=== PATIENT | male | born 1960 | race Caucasian/White ===

== ENCOUNTER 2021-08-22 11:47 | Emergency (ER) | payer BC, SELFPAY ==
--- NOTE | ~2021-08-22 | XR_ITS ---
EXAMINATION: XR chest 1V portable DATE: 08/22/2021 13:36 INDICATION: Cough. COVID-19 exposure. TECHNIQUE: A single frontal view of the chest was obtained. COMPARISON: Chest single view 07/11/2017 FINDINGS: The patient is rotated to his right. There are mild airspace opacities in left lower lung z one. No pleural effusion or pneumothorax. The heart size is normal. IMPRESSION: 1. Mild airspace opacities in left lower lung zone, consistent with atelectasis versus pneumonia. Reviewed, dictated and finalized at location A. LINE DISPATCH OPERATOR
[2021-08-22 12:06] VITALS: BP 148/92; PULSE 80; RESP 16; TEMP 36.2; O2SAT 99
[2021-08-22 13:21] VITALS: BP 131/86; PULSE 73; RESP 18; O2SAT 100
[2021-08-22 13:24] VITALS: O2SAT 100
--- NOTE | 2021-08-22 14:14 | ED.GENADULT ---
HPI - General Adult General Chief complaint: Upper Respiratory Infection Stated complaint: chest cold, covid exposure Time Seen by Provider: 08/22/21 13:23 Source: patient Mode of arrival: ambulatory Limitations: no limitations History of Present Illness HPI narrative: Patient is 61-year-old male presented with chief complaint of cough over the past few days. Patient reports that his sister and multiple other family members that he has been around have been tested positive for Covid over the last few days. Patient denies shortness of breath, chest pain or fevers. Patient reports that his cough has improved on today. Related Data Allergies Allergy/AdvReac Type Severity Reaction Status Date / Time morphine AdvReac Nausea and Verified 08/22/21 13:28 Vomiting Review of Systems Review of Systems: CONSTITUTIONAL: Denies fever, chills, or sweats. EYES: Denies visual changes, redness, or discharge. ENT: Denies rhinorrhea, congestion, sore throat, or otalgia. CARDIOVASCULAR: Denies chest pain, palpitations, or edema. RESPIRATORY: Reports cough denies dyspnea. GASTROINTESTINAL: Denies abdominal pain, nausea, vomiting, or diarrhea. GENITOURINARY: Denies dysuria or hematuria. SKIN: Denies rash or itching. MUSCULOSKELETAL: Denies back pain, joint pain, or myalgia. NEUROLOGIC: Denies headache, numbness, dizziness, or weakness. PSYCHIATRIC: Denies anxiety or depression. Exam Narrative: GENERAL: Well-appearing, well-nourished, and in no acute distress. HEAD: Normocephalic, atraumatic. EYES: PERRLA and EOMI. CHEST: Clear to auscultation. No respiratory distress. No wheezes rales or rhonchi. No tachypnea. HEART: Regular rate and rhythm. No murmur heard. Normal peripheral pulses. EXTREMITIES: Normal range of motion. No edema. SKIN: Warm, dry, no rash. NEURO: No focal deficits. Alert and oriented x3. PSYCH: Normal mood and affect. Course Vital Signs Vital signs: Vital Signs Temperature 97.1 F L 08/22/21 12:06 Pulse Rate 80 08/22/21 12:06 Respiratory Rate 16 08/22/21 12:06 Blood Pressure 148/92 H 08/22/21 12:06 Pulse Oximetry 99 08/22/21 12:06 Temperature 97.1 F L 08/22/21 12:06 Pulse Rate 72 08/22/21 14:38 Respiratory Rate 18 08/22/21 14:38 Blood Pressure 126/83 08/22/21 14:38 Pulse Oximetry 100 08/22/21 14:38 Medical Decision Making MDM Narrative Medical decision making narrative: Patient is not hypoxic, tachypneic or tachycardic. Patient is stable he does not show any signs of direct distress. Patient was to be to a Covid due to his Covid exposures. Patient has been instructed to quarantine himself and how to obtain his results in 2 or 3 days from his primary care or the [facility] patient portal. Patient has been instructed to return to emergency department if he develops any emergent symptoms. Patient verbalized understanding of plan and denies any other questions or concerns. Vital Signs Vital Signs: Vital Signs Temperature 97.1 F L 08/22/21 12:06 Pulse Rate 80 08/22/21 12:06 Respiratory Rate 16 08/22/21 12:06 Blood Pressure 148/92 H 08/22/21 12:06 Pulse Oximetry 99 08/22/21 12:06 Temperature 97.1 F L 08/22/21 12:06 Pulse Rate 72 08/22/21 14:38 Respiratory Rate 18 08/22/21 14:38 Blood Pressure 126/83 08/22/21 14:38 Pulse Oximetry 100 08/22/21 14:38 Lab Data Labs: Lab Results 08/22/21 Range/Units 13:47 SARS-CoV-2 RNA (RT-PCR) Pending Imaging Data Radiologist's impression: ITS Impressions Chest X-Ray 08/22/21 13:42 IMPRESSION: 1. Mild airspace opacities in left lower lung zone, consistent with atelectasis versus pneumonia. Discharge Plan Discharge Clinical Impression: Close exposure to 2019 novel coronavirus Patient Disposition: Home, Self-Care Condition: Improved Instructions: Antibiotic Form, COVID-19: Slow the Coronavirus Spread (ED) Additional Instructions: You may take [id number]
[2021-08-22 14:38] VITALS: BP 126/83; PULSE 72; RESP 18; O2SAT 100
[2021-08-26 21:01] LABS: SARS-CoV-2 RNA PCR Positive
== END 2021-08-22 14:35 | disposition home or self-care (01) ==
PROVIDERS: Physician Assistant; Emergency Provider Emergency Medicine; PCP Student in an Organized Health Care Education/Training Program
DX: U07.1 COVID-19 (principal)
CPT/HCPCS: 71045; 99283; C9803; U0003; U0005

== ENCOUNTER 2021-08-29 17:37 | Observation (INO) | payer BC, SELFPAY ==
--- NOTE | ~2021-08-29 | CT_ITS ---
EXAMINATION: CT brain wo con DATE: 08/29/2021 20:18 INDICATION: Confusion. COVID positive. TECHNIQUE: Computed tomography (CT) of the head was performed without intravenous contrast. Sagittal and coronal reconstructions were performed. The mA was adjusted according to patient size. Iterative reconstruction technique was employed. The dose-length product was 681.00 mGy-cm. COMPARISON: head CT dated 06/07/2018 FINDINGS: No acute intracranial hemorrhage, acute infarction or abnormal extra axial fluid collection. There is mild scattered white matter hypoattenuation consistent with chronic small vessel ischemic disease. S ymmetric prominence of the sulci consistent with mild age-appropriate diffuse cerebral volume loss. V entricles are normal and symmetric. No mass/mass effect. Changes of left intraocular lens replacement . The orbits and mastoid air cells are normal. Mild mucosal thickening the bilateral ethmoid sinuses. IMPRESSION: 1. No acute intracranial process. 2. Age-related changes including mild diffuse volume loss and mild scattered white matter hypoattenua tion consistent with chronic small vessel ischemic disease. Reviewed, dictated and finalized at location . BRUSHER IMPRESSION: 1. No acute intracranial process. 2. Age-related changes including mild diffuse volume loss and mild scattered wh ite matter hypoattenuation consistent with chronic small vessel ischemic diseas e.
--- NOTE | ~2021-08-29 | XR_ITS ---
EXAMINATION: XR chest 1V portable DATE: 08/29/2021 18:11 INDICATION: Altered mental status TECHNIQUE: 08/22/2021 COMPARISON: Chest radiograph dated 08/22/2021 FINDINGS: Subtle opacities at the left lower lung zone. No pleural effusion or pneumothorax. The cardiomediasti nal silhouette is normal. Cholecystectomy clips in right upper quadrant. IMPRESSION: 1. Mild opacities in the left lower lung zone which could represent atelectasis and/or pneumonia. Reviewed, dictated and finalized at location H. TH DATA ADMINISTRATOR
[2021-08-29 17:40] VITALS: BP 142/90; PULSE 82; RESP 20; TEMP 37.8; O2SAT 94
--- NOTE | 2021-08-29 17:49 | ECG_ITS ---
Measurements Intervals [place] Rate: 80 P: -33 FL: 138 QRS: 39 QRSD: 103 T: 60 QT: 401 QTc: 464 Interpretive Statements SINUS RHYTHM MINIMAL Q WAVES- INFERIOR LEADS NONSPECIFIC ST & T-WAVE ABNORMALITY- INF/HIGH LAT LEADS BASELINE ARTIFACT- I, II, III, AVR, AVF, V1, V3-V6 BORDERLINE ECG Electronically Signed On 08-30-2021 8:26:31 MAPPING ANALYST by Luis Nam D.O.
[2021-08-29 17:53] LABS: Glucose Point of Care > 500 mg/dl (65-105)
[2021-08-29] MEDS: INSULIN HUMAN REGULAR (*BKC) 100 UNITS/ML 8 UNITS IV PUSH (18:17)
[2021-08-29 18:28] LABS: Add Urine Microscopic? YES; Appearance Urine Clear (Clear); Bilirubin Urine Negative (Negative); Blood Urine 1+ (Negative); Color Urine Yellow (Yellow); Glucose Urine UA 3+ mg/dL (Negative); Ketones Urine 1+ mg/dL (Negative); Leukocyte Esterase Ur Negative LEU/UL (Negative); Nitrate Urine Negative (Negative); Protein Urine Negative (Negative); RBC Urine 0-2 /hpf (0-2); Urobilinogen Urine Negative mg/dL (<2.0); WBC Urine 0-3 /hpf
[2021-08-29] MEDS: SODIUM CHLORIDE 0.9% IV 1,000 ML 999 ML IV CONT (18:34)
[2021-08-29 18:39] VITALS: RESP 32
[2021-08-29 18:40] LABS: Specific Grav Ur 1.031 (1.001-1.035)
[2021-08-29 18:43] LABS: Basophils Percent Auto 0.3 % (0.2-1.2); Hematocrit 37.9 % (42.0-52.0); Hemoglobin 13.7 g/dL (14.0-18.0); Immature Granulocyte Absolute 0.05 K/mm3 (0.00-0.031); Immature Granulocyte Percent A 0.7 % (0-0.5); Immature Platelet Fraction Pct 6.1 % (0.9-11.2); Lymphocytes Absolute Auto 1.53 K/mm3 (0.9-3.2); Lymphocytes Percent Auto 21.6 % (18.3-44.2); Mean Corpuscular HGB Conc 36.1 g/dl (32-36); Mean Corpuscular Hemoglobin 30.2 pg (26-34); Mean Corpuscular Volume 83.7 fl (80-100); Mean Platelet Volume 11.3 fl (7.4-10.4); Monocytes Absolute Auto 0.2 K/mm3 (0.1-0.6); Monocytes Percent Auto 2.5 % (2.6-8.5); Neutrophils Absolute Auto 5.3 K/mm3 (1.3-6.7); Neutrophils Percent Auto 74.9 % (45.5-73.1); Platelet Count Result 137 k/mm3 (150-375); Red Blood Count 4.53 M/mm3 (4.6-6.20); White Blood Count 7.1 K/mm3 (4.5-10.0)
[2021-08-29 18:52] LABS: Lactic Acid Reflex 2.4 mmol/L (0.7-2.1)
[2021-08-29 18:52] LABS: Alanine Aminotransferase 78 U/L (4-50); Albumin Level 3.6 g/dL (3.5-5.1); Alkaline Phosphatase 89 U/L (38-126); Anion Gap 12 mmol/L (8-16); Aspartate Amino Transferase 221 U/L (17-59); Bilirubin,Total 1.1 mg/dL (0.2-1.3); Blood Urea Nitrogen 17 mg/dL (9-20); Calcium 8.6 mg/dL (8.4-10.2); Carbon Dioxide 23 mmol/L (22-30); Chloride 89 mmol/L (98-107); Estimated CRCL calculation 82 ml/min; Estimated Glomerular Filt Rate > 60; Glucose 416 mg/dL (65-110); INR 1.1; Potassium 3.1 mmol/L (3.4-5.0); Prothrombin Time 14.4 Seconds (11.1-14.7); Sodium 124 mmol/L (137-145)
[2021-08-29 18:53] LABS: Partial Thromboplastin Time 32.7 SECONDS (22.3-36.8)
[2021-08-29 19:01] VITALS: BP 126/69; PULSE 73; RESP 34; O2SAT 94
[2021-08-29 19:03] LABS: Troponin I < 0.012 ng/mL (0.000-0.034)
[2021-08-29 19:21] LABS: Ammonia < 9 umol/L (9-30)
[2021-08-29 19:25] LABS: Glucose Point of Care 229 mg/dl (65-105)
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
[2021-08-29 19:37] LABS: Ethanol < 10 mg/dL (<10)
--- NOTE | 2021-08-29 20:08 | PC.NURSE ---
Pt to imaging at this time.
[2021-08-29 20:20] VITALS: BP 109/93; PULSE 69; RESP 38; O2SAT 95
[2021-08-29 21:23] VITALS: BP 110/57; PULSE 62; RESP 34; O2SAT 94
[2021-08-29 21:38] LABS: Reflex Lactic Acid Yes or No Add Lactic
--- NOTE | 2021-08-29 21:55 | PM.IMHP ---
H&P: HPI History of Present Illness Date/Time: 08/29/21 21:55 Chief Complaint: Altered mental status Narrative: This is a 61-year-old male with past medical history significant for bipolar disorder, hepatic cirrhosis, diabetes, hepatitis-C, hypothyroidism. Patient was found driving around in the area and was brought to the emergency room patient does not know exactly how he got to the emergency room and while he is there he states that the doctor told him so , also patient states that he has COVID pneumonia that he tested positive with a home kit. Rest of the history patient can not give much states that he does not have much of an appetite and has been having chills and rigors, shortness of breath and dry cough. Preliminary workup was significant for positive COVID test, sodium of 124, elevated LFTs. Decision has been made to admit the patient for further evaluation management and treatment. [facility] Past Medical History Medical History (Updated 08/30/21 @ 01:17 by Gildardo Barrett MD) Bipolar disorder BPH (benign prostatic hyperplasia) Cirrhosis of liver Diabetes Hepatitis C Hypercholesterolemia Hypothyroidism Insomnia Family History Family History (Updated 08/29/21 @ 23:50 by Robin Harvey RN) Mother Diabetes mellitus Sibling Diabetes mellitus Social History Social History Smoking packs per day: 2 Smoking cigarettes per day: 40.0 Years smoked: 15 Smoking pack-years: 30.00 Smoking status: Former smoker Alcohol intake: never Substance use: former Substance use type: marijuana Spiritual care concerns: No Meds Home Medications and Allergies Home Medications Medication Instructions Recorded Confirmed Type fenofibrate 54 mg PO DAILY 08/30/21 08/30/21 History gabapentin [Neurontin] 400 mg PO TID 08/30/21 08/30/21 History icosapent ethyl 1 g PO BID 08/30/21 08/30/21 History levothyroxine 150 mcg PO DAILY 08/30/21 08/30/21 History linagliptin [Tradjenta] 5 mg PO DAILY 08/30/21 08/30/21 History olanzapine 10 mg PO DAILY 08/30/21 08/30/21 History omeprazole 20 mg PO DAILY 08/30/21 08/30/21 History oxybutynin chloride 10 mg PO DAILY 08/30/21 08/30/21 History potassium chloride 10 meq PO BID 08/30/21 08/30/21 History pravastatin 10 mg PO DAILY 08/30/21 08/30/21 History rifaximin [Xifaxan] 550 mg PO BID 08/30/21 08/30/21 History ropinirole 2 mg PO DAILY 08/30/21 08/30/21 History topiramate 50 mg PO BID 08/30/21 08/30/21 History Allergies Allergy/AdvReac Type Severity Reaction Status Date / Time morphine AdvReac Nausea and Verified 08/29/21 17:54 Vomiting Vital Signs Vital Signs - 24 hr 08/29/21 17:40 08/29/21 18:39 08/29/21 19:01 Temperature 100.1 F H Pulse Rate 82 73 Respiratory Rate 20 32 H 34 H Blood Pressure 142/90 H 126/69 Pulse Oximetry 94 94 08/29/21 20:20 08/29/21 21:23 Temperature Pulse Rate 69 62 Respiratory Rate 38 H 34 H Blood Pressure 109/93 H 110/57 L Pulse Oximetry 95 94 H&P: Results Labs Labs: Short CBC 08/29/21 Range/Units 18:26 WBC 7.1 (4.5-10.0) K/mm3 Hgb 13.7 L (14.0-18.0) g/dL Hct 37.9 L (42.0-52.0) % Plt Count 137 L (150-375) k/mm3 BMP 08/29/21 18:26 Sodium 124 L Potassium 3.1 L Chloride 89 L Carbon Dioxide 23 BUN 17 Creatinine 0.70 Glucose 416 H Calcium 8.6 Cardiac Enzymes 08/29/21 Range/Units 18:26 Troponin I < 0.012 (0.000-0.034) ng/mL Liver Function 08/29/21 Range/Units 18:26 Total Bilirubin 1.1 (0.2-1.3) mg/dL AST 221 H (17-59) U/L ALT 78 H (4-50) U/L Alkaline Phosphatase 89 (38-126) U/L Albumin 3.6 (3.5-5.1) g/dL Urine 08/29/21 Range/Units 18:17 Urine Color Yellow (Yellow) Urine Appearance Clear (Clear) Urine pH 6.0 (5.0-9.0) Ur Specific [place] 1.031 (1.001-1.035) Urine Protein Negative (Negative) mg/dL Urine Glucose (UA) 3+ H (Negative) mg/dL
[2021-08-29 22:18] LABS: Lactic Acid 1.8 mmol/L (0.7-2.1)
[2021-08-29 22:37] VITALS: BP 115/69; PULSE 64; RESP 30; O2SAT 94
[2021-08-29] MEDS: SODIUM CHLORIDE 0.9% IV 1,000 ML 125 ML IV CONT (22:37)
--- NOTE | 2021-08-29 23:40 | ADMGEN ---
This patient, Ochoa Betancur, was admitted to [facility] Surg Room 303-01. Patient/family oriented to hospital policies and general routines including ID bracelet, bed and alarms, visiting hours, pain management, procedures, bathroom and other care routines, personal items, smoking policy, room service/diet, and visiting hours. Information on how to activate the Rapid Response Team has been discussed. Patient/Family are encouraged to report perceived risks to care and to ask questions if they do not understand what they are told or what they should do.
[2021-08-29 23:48] VITALS: BMI 27.1
[2021-08-30] VITALS (7 sets, daily range): BP systolic 100–123; BP diastolic 56–67; PULSE 56–69; RESP 18–20; TEMP 36.1–37.1; O2SAT 91–96
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
[2021-08-30 04:31] LABS: Sodium Urine Random 32 meq/L
[2021-08-30] MEDS: LEVOTHYROXINE SODIUM 150 MCG TABLET PO (06:08)
[2021-08-30] MEDS: SODIUM CHLORIDE 0.9% IV 1,000 ML 125 ML IV CONT ×2 (06:08→12:35)
[2021-08-30] MEDS: rifAXIMin 550 MG TABLET PO ×2 (09:55→17:19)
[2021-08-30] MEDS: GABAPENTIN 400 MG CAPSULE PO ×3 (09:56→17:19)
[2021-08-30] MEDS: OMEGA 3 POLYUNSAT FATTY ACIDS 1 GM CAP PO ×2 (09:56→17:19)
[2021-08-30] MEDS: PANTOPRAZOLE 40 MG TABLET PO (09:56)
[2021-08-30] MEDS: OLANZapine 5 MG TABLET 10 MG PO (09:56)
[2021-08-30] MEDS: TOPIRAMATE 25 MG TABLET 50 MG PO ×2 (09:56→17:19)
[2021-08-30] MEDS: PRAVASTATIN SODIUM 10 MG TABLET PO (09:56)
[2021-08-30] MEDS: POTASSIUM CHLORIDE 10 MEQ TABLET.ER PO ×2 (09:57→17:20)
[2021-08-30 12:54] LABS: Glucose Point of Care 276 mg/dl (65-105)
--- NOTE | 2021-08-30 15:04 | PM.IMPN ---
Progress Note: A&P Assessment and Plan (1) Altered mental status: Code(s): R41.82 - Altered mental status, unspecified Status: Acute Assessment and Plan: Likely multifactorial but suspect encephalopathy due to Endocrine a metabolic and toxic causes patient has hyponatremia and COVID-19 pneumonia patient also had a fever which old con contribute to confusion disorientation and delirium. CT of the head with no acute abnormalities Continue to monitor Supportive care (2) Acute hyponatremia: Code(s): E87.1 - Hypo-osmolality and hyponatremia Status: Acute Assessment and Plan: Will continue 0.9 normal saline Continue to monitor Will obtain urine sodium Will obtain urine osmolality (3) COVID-19: Code(s): U07.1 - COVID-19 Status: Acute Assessment and Plan: Supportive care Continue to monitor (4) Cirrhosis of liver: Code(s): K74.60 - Unspecified cirrhosis of liver Status: Inactive Assessment and Plan: Continue to monitor Follow-up in outpatient setting (5) Bipolar disorder: Code(s): F31.9 - Bipolar disorder, unspecified Status: Inactive Assessment and Plan: Continue home meds Follow-up in outpatient setting Additional Plan 08/30/2021 Start IV antibiotic for COVID pneumonia. Order blood and urine culture. Hyponatremia most likely secondary to high sugar. Will add Lantus better sugar control. Repeat labs in the morning. Subjective Date/time seen: 08/30/21 15:04 Patient was seen during the morning rounds today. Mild shortness of breath no chest pain. No abdominal pain, no nausea, no vomiting. Mood stable. Review of Systems Constitutional: Constitutional: Reports chills, Denies excessive sweating, Reports fatigue, Reports fever(s) and Reports poor appetite Eyes: Eyes: Denies change in vision ENT: Denies dysphagia, Denies nasal congestion, Denies nasal discharge, Denies nasal obstruction and Denies odynophagia Cardiovascular: Cardiovascular: Denies radiating jaw, neck or arm pain, Denies palpitations, Reports dyspnea, Denies dyspnea on exertion and Denies orthopnea Respiratory: Respiratory: Denies change in phlegm color, Reports cough, Denies excessive phlegm production, Reports dyspnea and Denies dyspnea on exertion Gastrointestinal: Gastrointestinal: Denies GI cramping, Denies dysphagia, Denies dyspepsia, Denies heartburn, Denies nausea, Denies odynophagia and Denies vomiting Genitourinary: Genitourinary: Denies dysuria Musculoskeletal: Musculoskeletal: Denies arthralgias and Denies joint swelling Integumentary/Breasts: Skin/Breast: Denies rash Neurologic: Reports confusion, Denies focal weakness and Denies Sensory deficit (Neuro) Psychiatric: Psychiatric: Reports confusion Endocrine: Endocrine: Denies excessive sweating, Reports fatigue, Denies heat intolerance, Denies increase in ring/shoe/hat size, Denies polyphagia and Denies palpitations Hematologic/Lymphatic: Hematologic/Lymphatic: Reports no additional hematologic/lymphatic complaints and Reports as per HPI Allergic/Immunologic: Allergic/Immunologic: Reports no additional allergic/immunologic complaints and Reports as per HPI Exam Narrative: Patient is laying in gurney Const: General: cooperative, comfortable, no acute distress, well developed, alert, awake, confusion and other (Well-appearing) Nutritional Appearance: average body habitus Orientation/consciousness: oriented to person, oriented to place and confusion HENMT: Head: normal to inspection, normocephalic and atraumatic Ears: hearing grossly normal bilaterally General nose exam: Normal external nose present Face and sinus: normal facial exam Mouth: Yes Normal oral and palatal mucosa present Eyes: General: appearance normal, both eyes and all related structures Alignment and Position: alignment normal Sclera: sclerae normal Pupils: Equal, round and reactive pupils present EOM: EOMs intact bilateral
[2021-08-30 16:54] LABS: Glucose Point of Care 267 mg/dl (65-105)
[2021-08-30] MEDS: INSULIN ASPART (*BKC) 100 UNITS/ML SUB-Q (17:18)
[2021-08-30] MEDS: INSULIN GLARGINE (*BKC) 100 UNITS/ML 15 UNITS SUB-Q (21:28)
[2021-08-30 21:32] LABS: Glucose Point of Care 170 mg/dl (65-105)
[2021-08-31] MEDS: SODIUM CHLORIDE 0.9% IV 1,000 ML 83 ML IV CONT ×2 (01:31→12:39)
[2021-08-31 03:44] VITALS: BP 121/60; PULSE 52; RESP 18; TEMP 36.7; O2SAT 95
[2021-08-31] MEDS: LEVOTHYROXINE SODIUM 150 MCG TABLET PO (05:53)
[2021-08-31 06:46] LABS: Alanine Aminotransferase 61 U/L (4-50); Albumin Level 2.7 g/dL (3.5-5.1); Alkaline Phosphatase 67 U/L (38-126); Anion Gap 8 mmol/L (8-16); Aspartate Amino Transferase 117 U/L (17-59); Bilirubin,Total 0.8 mg/dL (0.2-1.3); Blood Urea Nitrogen 6 mg/dL (9-20); Calcium 7.8 mg/dL (8.4-10.2); Carbon Dioxide 21 mmol/L (22-30); Chloride 107 mmol/L (98-107); Estimated CRCL calculation 82 ml/min; Estimated Glomerular Filt Rate > 60; Glucose 169 mg/dL (65-110); Potassium 2.9 mmol/L (3.4-5.0); Sodium 136 mmol/L (137-145)
--- NOTE | 2021-08-31 07:32 | PM.IMPN ---
Progress Note: A&P Assessment and Plan (1) Altered mental status: Code(s): R41.82 - Altered mental status, unspecified Status: Acute Assessment and Plan: Likely multifactorial but suspect encephalopathy due to Endocrine a metabolic and toxic causes patient has hyponatremia and COVID-19 pneumonia patient also had a fever which old con contribute to confusion disorientation and delirium. CT of the head with no acute abnormalities Continue to monitor Supportive care (2) Acute hyponatremia: Code(s): E87.1 - Hypo-osmolality and hyponatremia Status: Acute Assessment and Plan: Will continue 0.9 normal saline Continue to monitor Will obtain urine sodium Will obtain urine osmolality (3) COVID-19: Code(s): U07.1 - COVID-19 Status: Acute Assessment and Plan: Supportive care Continue to monitor (4) Cirrhosis of liver: Code(s): K74.60 - Unspecified cirrhosis of liver Status: Inactive Assessment and Plan: Continue to monitor Follow-up in outpatient setting (5) Bipolar disorder: Code(s): F31.9 - Bipolar disorder, unspecified Status: Inactive Assessment and Plan: Continue home meds Follow-up in outpatient setting Additional Plan 08/30/2021 Start IV antibiotic for COVID pneumonia. Order blood and urine culture. Hyponatremia most likely secondary to high sugar. Will add Lantus better sugar control. Repeat labs in the morning. 08/31/2021 Sugar is better, mental status has improved significantly. Feeding for repeat COVID test result. Hyponatremia has improved. LFTs are also improving. Potassium is low will replace and monitor. Possible discharge tomorrow morning. Subjective Date/time seen: 08/31/21 07:32 Patient is feeling much better today. Mental status has improved significantly. Mild shortness of breath no chest pain. No abdominal pain, no nausea, no vomiting. Mood stable. Review of Systems Constitutional: Constitutional: Reports chills, Denies excessive sweating, Reports fatigue, Reports fever(s) and Reports poor appetite Eyes: Eyes: Denies change in vision ENT: Denies dysphagia, Denies nasal congestion, Denies nasal discharge, Denies nasal obstruction and Denies odynophagia Cardiovascular: Cardiovascular: Denies radiating jaw, neck or arm pain, Denies palpitations, Reports dyspnea, Denies dyspnea on exertion and Denies orthopnea Respiratory: Respiratory: Denies change in phlegm color, Reports cough, Denies excessive phlegm production, Reports dyspnea and Denies dyspnea on exertion Gastrointestinal: Gastrointestinal: Denies GI cramping, Denies dysphagia, Denies dyspepsia, Denies heartburn, Denies nausea, Denies odynophagia and Denies vomiting Genitourinary: Genitourinary: Denies dysuria Musculoskeletal: Musculoskeletal: Denies arthralgias and Denies joint swelling Integumentary/Breasts: Skin/Breast: Denies rash Neurologic: Reports confusion, Denies focal weakness and Denies Sensory deficit (Neuro) Psychiatric: Psychiatric: Reports confusion Endocrine: Endocrine: Denies excessive sweating, Reports fatigue, Denies heat intolerance, Denies increase in ring/shoe/hat size, Denies polyphagia and Denies palpitations Hematologic/Lymphatic: Hematologic/Lymphatic: Reports no additional hematologic/lymphatic complaints and Reports as per HPI Allergic/Immunologic: Allergic/Immunologic: Reports no additional allergic/immunologic complaints and Reports as per HPI Exam Narrative: Patient is laying in gurney Const: General: cooperative, comfortable, no acute distress, well developed, alert, awake, confusion and other (Well-appearing) Nutritional Appearance: average body habitus Orientation/consciousness: oriented to person, oriented to place and confusion HENMT: Head: normal to inspection, normocephalic and atraumatic Ears: hearing grossly normal bilaterally General nose exam: Normal external nose present Face and sinus: normal fa
[2021-08-31 07:58] VITALS: BP 119/67; PULSE 56; RESP 17; TEMP 36.2; O2SAT 92
[2021-08-31 09:34] LABS: Glucose Point of Care 233 mg/dl (65-105)
[2021-08-31] MEDS: INSULIN ASPART (*BKC) 100 UNITS/ML SUB-Q ×2 (10:16→12:26)
[2021-08-31] MEDS: POTASSIUM CHLORIDE 10 MEQ TABLET.ER PO ×2 (10:17→16:21)
[2021-08-31] MEDS: ENOXAPARIN 40 MG/0.4 ML SYRINGE SUB-Q (10:17)
[2021-08-31] MEDS: rifAXIMin 550 MG TABLET PO ×2 (10:17→16:21)
[2021-08-31] MEDS: GABAPENTIN 400 MG CAPSULE PO ×3 (10:17→16:21)
[2021-08-31] MEDS: OLANZapine 5 MG TABLET 10 MG PO (10:18)
[2021-08-31] MEDS: MAGNESIUM OXIDE 400 MG TABLET PO (10:18)
[2021-08-31] MEDS: PANTOPRAZOLE 40 MG TABLET PO (10:18)
[2021-08-31] MEDS: TOPIRAMATE 25 MG TABLET 50 MG PO ×2 (10:18→16:22)
[2021-08-31] MEDS: OMEGA 3 POLYUNSAT FATTY ACIDS 1 GM CAP PO ×2 (10:18→16:21)
[2021-08-31] MEDS: PRAVASTATIN SODIUM 10 MG TABLET PO (10:18)
[2021-08-31] MEDS: POTASSIUM CHLORIDE 20 MEQ PACKET (FOR LIQUID) PO (10:19)
[2021-08-31 11:37] LABS: Glucose Point of Care 221 mg/dl (65-105)
[2021-08-31 11:47] VITALS: BP 118/63; PULSE 62; RESP 18; TEMP 35.8; O2SAT 94
[2021-08-31 15:26] LABS: SARS-CoV-2 RNA PCR Positive
[2021-08-31 15:38] VITALS: BP 117/75; PULSE 59; RESP 18; TEMP 36.1; O2SAT 95
[2021-08-31 16:34] LABS: Glucose Point of Care 181 mg/dl (65-105)
[2021-08-31 20:00] VITALS: BP 124/74; PULSE 59; RESP 18; TEMP 36.8; O2SAT 95
[2021-08-31 23:29] VITALS: BP 132/77; PULSE 61; RESP 18; TEMP 36.8; O2SAT 93
[2021-08-31] MEDS: INSULIN GLARGINE (*BKC) 100 UNITS/ML 15 UNITS SUB-Q (23:51)
[2021-09-01 02:15] LABS: Glucose Point of Care 204 mg/dl (65-105)
[2021-09-01] MEDS: SODIUM CHLORIDE 0.9% IV 1,000 ML 83 ML IV CONT (02:18)
[2021-09-01 03:40] VITALS: BP 132/83; PULSE 57; RESP 18; TEMP 36.8; O2SAT 94
[2021-09-01] MEDS: LEVOTHYROXINE SODIUM 150 MCG TABLET PO (06:33)
[2021-09-01 06:48] LABS: Alanine Aminotransferase 57 U/L (4-50); Alkaline Phosphatase 78 U/L (38-126); Anion Gap 2 mmol/L (8-16); Aspartate Amino Transferase 88 U/L (17-59); Bilirubin,Total 0.8 mg/dL (0.2-1.3); Blood Urea Nitrogen 2 mg/dL (9-20); Calcium 8.2 mg/dL (8.4-10.2); Carbon Dioxide 19 mmol/L (22-30); Chloride 113 mmol/L (98-107); Estimated CRCL calculation 111 ml/min; Estimated Glomerular Filt Rate > 60; Glucose 187 mg/dL (65-110); Sodium 134 mmol/L (137-145)
[2021-09-01 07:50] LABS: Glucose Point of Care 163 mg/dl (65-105)
[2021-09-01 08:00] VITALS: BP 140/80; PULSE 58; RESP 18; TEMP 35.8; O2SAT 96
[2021-09-01] MEDS: TOPIRAMATE 25 MG TABLET 50 MG PO (08:03)
[2021-09-01] MEDS: PRAVASTATIN SODIUM 10 MG TABLET PO (08:04)
[2021-09-01] MEDS: MAGNESIUM OXIDE 400 MG TABLET PO (08:04)
[2021-09-01] MEDS: OMEGA 3 POLYUNSAT FATTY ACIDS 1 GM CAP PO (08:04)
[2021-09-01] MEDS: rifAXIMin 550 MG TABLET PO (08:04)
[2021-09-01] MEDS: POTASSIUM CHLORIDE 20 MEQ PACKET (FOR LIQUID) PO (08:04)
[2021-09-01] MEDS: POTASSIUM CHLORIDE 10 MEQ TABLET.ER PO (08:04)
[2021-09-01] MEDS: ENOXAPARIN 40 MG/0.4 ML SYRINGE SUB-Q (08:05)
[2021-09-01] MEDS: OLANZapine 5 MG TABLET 10 MG PO (08:05)
[2021-09-01] MEDS: PANTOPRAZOLE 40 MG TABLET PO (08:05)
[2021-09-01] MEDS: GABAPENTIN 400 MG CAPSULE PO ×2 (08:05→12:14)
[2021-09-01 11:35] LABS: Glucose Point of Care 287 mg/dl (65-105)
[2021-09-01 11:41] VITALS: BP 127/74; PULSE 73; RESP 18; TEMP 35.8; O2SAT 95
[2021-09-01] MEDS: KCL 40 MEQ/0.9% SOD CHL 1,000 ML 100 ML IV CONT (12:13)
[2021-09-01] MEDS: INSULIN ASPART (*BKC) 100 UNITS/ML SUB-Q ×2 (12:14→16:48)
--- NOTE | 2021-09-01 12:31 | PC.NURSE ---
This nurse only gave 100 ml of the kcl rider to patient per dr. Jones
--- NOTE | 2021-09-01 13:03 | PM.DS ---
DS: Admitting Diagnosis Discharge Date 09/01/2021 Admitting Diagnosis Mental status changes Acute hyponatremia COVID-19 infection DS: Discharge Diagnosis Discharge Diagnosis (1) Altered mental status: Code(s): R41.82 - Altered mental status, unspecified Status: Acute Assessment and Plan: Likely multifactorial but suspect encephalopathy due to Endocrine a metabolic and toxic causes patient has hyponatremia and COVID-19 pneumonia patient also had a fever which old con contribute to confusion disorientation and delirium. CT of the head with no acute abnormalities Continue to monitor Supportive care (2) Acute hyponatremia: Code(s): E87.1 - Hypo-osmolality and hyponatremia Status: Acute Assessment and Plan: Will continue 0.9 normal saline Continue to monitor Will obtain urine sodium Will obtain urine osmolality (3) COVID-19: Code(s): U07.1 - COVID-19 Status: Acute Assessment and Plan: Supportive care Continue to monitor (4) Cirrhosis of liver: Code(s): K74.60 - Unspecified cirrhosis of liver Status: Inactive Assessment and Plan: Continue to monitor Follow-up in outpatient setting (5) Bipolar disorder: Code(s): F31.9 - Bipolar disorder, unspecified Status: Inactive Assessment and Plan: Continue home meds Follow-up in outpatient setting DS: Summary Hospital Course Reason for hospitalization: Mental status change Acute hyponatremia COVID 19 infection Hospital Course: Patient is 59 years old male was admitted complains of having altered mental status. Patient was found to have severe hyponatremia, patient also have possible exposure to COVID. Patient was given this would potassium was also replaced patient was continued to monitor for oxygen drop in the hospital. Patient did not have any complication during the stay in the hospital. Today patient is feeling better so patient discharged home stable condition will repeat BMP outpatient next week and monitor sodium potassium outpatient. Time spent discussing smoking cessation with patient: 3 to 10 minutes Status at Discharge Cognitive/behavioral status at discharge: Stable Functional status at discharge: independent ambulation Overall status at discharge: patient is back to baseline Time Spent with Patient Time attestation: Total time spent providing and/or coordinating discharge services: Time spent: Less than 30 minutes Exam Const: General: cooperative, comfortable, no acute distress, well developed, alert, awake, confusion and other (Well-appearing) Nutritional Appearance: average body habitus Orientation/consciousness: oriented to person, oriented to place and confusion HENMT: Head: normal to inspection, normocephalic and atraumatic Ears: hearing grossly normal bilaterally General nose exam: Normal external nose present Face and sinus: normal facial exam Mouth: Yes Normal oral and palatal mucosa present Eyes: General: appearance normal, both eyes and all related structures Alignment and Position: alignment normal Sclera: sclerae normal Pupils: Equal, round and reactive pupils present EOM: EOMs intact bilaterally Neck: Neck: normal visual inspection, full ROM, no lymphadenopathy, supple and no JVD Thyroid: thyroid normal Lymphatic: no lymphadenopathy noted Resp: Effort & Inspection: normal respiratory effort and able to speak in complete sentences Auscultation: clear to auscultation bilaterally, no crackles, no rales, no rhonchi and no wheezes Cardio: Jugular venous distension: no JVD Rate: regular rate Rhythm: regular rhythm Heart sounds: S1 normal heart sound present and S2 normal heart sound present GI: Inspection: normal to inspection : General: Yes deferred Skin: Rashes: no rashes Wounds: no wounds Neuro: General: oriented to person, oriented to place, CN's II-XI intact bilaterally, confusion and Unable to assess gait Cranial nerves: Yes CN's II-XII inta
[2021-09-01 14:05] LABS: Anion Gap 3 mmol/L (8-16); Blood Urea Nitrogen 2 mg/dL (9-20); Calcium 8.4 mg/dL (8.4-10.2); Carbon Dioxide 22 mmol/L (22-30); Chloride 110 mmol/L (98-107); Estimated CRCL calculation 82 ml/min; Estimated Glomerular Filt Rate > 60; Glucose 325 mg/dL (65-110); Potassium 3.6 mmol/L (3.4-5.0); Sodium 135 mmol/L (137-145)
[2021-09-01 15:50] VITALS: BP 118/64; PULSE 64; RESP 18; TEMP 35.8; O2SAT 99
[2021-09-01 16:29] LABS: Glucose Point of Care 312 mg/dl (65-105)
[2021-09-03 18:32] LABS: Osmolality, Urine 630 mOsm/kg (50-1200)
== END 2021-09-01 17:05 | disposition home or self-care (01) ==
LOC: ANHED 18:08 → ANH3MEDSUR 23:53
PROVIDERS: Admitting Provider Internal Medicine; Emergency Provider Emergency Medicine; PCP Student in an Organized Health Care Education/Training Program; Visit Provider Internal Medicine
DX: U07.1 COVID-19 (principal); J12.82 Pneumonia due to coronavirus disease 2019; E87.1 Hypo-osmolality and hyponatremia; R41.82 Altered mental status, unspecified; E11.65 Type 2 diabetes mellitus with hyperglycemia; E03.9 Hypothyroidism, unspecified; E78.00 Pure hypercholesterolemia, unspecified; K74.60 Unspecified cirrhosis of liver; B19.20 Unspecified viral hepatitis C without hepatic coma; F31.9 Bipolar disorder, unspecified; Z87.891 Personal history of nicotine dependence; Z79.84 Long term (current) use of oral hypoglycemic drugs; Z79.899 Other long term (current) drug therapy
CPT/HCPCS: 36415; 70450; 71045; 80048; 80053; 80307; 81001; 82140; 82948; 83605; 83935; 84300; 84484; 85025; 85055; 85610; 85730; 87040; 87086; 93005; 96361; 96374; 99285; A9270; C9803; J0456; J0696; J1650; J1815; J7030; U0003; U0005